=== PATIENT | male | born 1970 | race Caucasian/White ===

== ENCOUNTER → 2021-09-21 | Outpatient (CLI) | payer OTHER ==
--- NOTE | 2021-09-21 12:23 | KCIC ---
EXAM: Left shoulder, 3 views; right wrist, 3 views; right ankle, 3 views; pelvis and hips, 3 views. HISTORY: Pain. COMPARISON: None. FINDINGS: Pelvis and bilateral hips: A frontal view the pelvis and frog-leg views of both hips are obtained. Th ere are large corticated ossicles along the superior lateral femoral acetabular joints. There is decr eased femoral head-neck offset suggesting a component of chronic impingement. There is degenerative c hange at the lumbosacral junction. Right wrist: 3 views of the right wrist are obtained. There is no acute fracture, dislocation or subl uxation. Left shoulder: 3 views left shoulder obtained. There is no fracture, dislocation or subluxation. Ther e is a suspected small degenerative subchondral cyst within the distal clavicle. There is no convinci ng erosion. Right ankle: 3 views of the right ankle are obtained. There is internal fixation of healed distal fib ular metadiaphyseal and posterior medial malleolar fractures. There is moderate tibiotalar joint spur ring. There is no osteochondral lesion. No acute fracture is seen. IMPRESSION: 1. Internal fixation of healed right trimalleolar fractures. 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 2. Minimal left acromioclavicular joint osteoarthritis. 3. Mild bilateral hip osteoarthritis and findings suggesting chronic hip impingement. Electronically signed by: Stephany Laws MD (09/21/2021 12:21 PM) [id number]
== END ==
LOC: KCIC 11:22
PROVIDERS: ATTEND Family Medicine
DX: M16.0 Bilateral primary osteoarthritis of hip (principal); M19.071 Primary osteoarthritis, right ankle and foot; M19.012 Primary osteoarthritis, left shoulder; M47.817 Spondylosis without myelopathy or radiculopathy, lumbosacral region; M25.551 Pain in right hip; M25.552 Pain in left hip
CPT/HCPCS: 73030; 73110; 73521; 73610